=== PATIENT | male | born 1950 | race Caucasian/White ===

== ENCOUNTER 2019-07-20 11:07 | Outpatient (CLI) | payer MEDICARE, BC | END 2019-07-20 23:59 | disposition home or self-care (01) | LOC: RAD 11:07 | PROVIDERS: ATTEND Homeopath | DX: C19 Malignant neoplasm of rectosigmoid junction (principal); C64.9 Malignant neoplasm of unspecified kidney, except renal pelvis | CPT/HCPCS: 36573; C1751 ==